=== PATIENT | female | born 2000 | race Caucasian/White ===

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

== ENCOUNTER 2020-02-24 14:27 | Emergency (ER) | payer MEDICAID ==
[2020-02-24 14:34] VITALS: BP 101/65
[2020-02-24] MEDS ORDERED: ONDANSETRON ODT 4 MG TAB (6 TAB/ER DISP) PO PRN (14:44)
--- NOTE | 2020-02-24 14:59 | ER Document Report ---
ED GI/ - General Chief Complaint: Nausea Stated Complaint: MEDICATION REFILL 25 WKS Time Seen by Provider: 02/24/20 14:44 Primary Care Provider: [facility] [Provider Group] - Follow up as needed Mode of Arrival: Ambulatory Information source: Patient Notes: 19-year-old presents to ED for nausea and vomiting during . She states she has an appointment with the [facility] on the and she needs some Zofran to last until she can go to the [facility]. She states she had a prescription for the Zofran and has run out and there are no refills. We will give patient a sixpack of Zofran which should last her until her follow-up appointment. She states she usually just needs to take it once a day and if she does not take it she is not able to keep any food or fluids down. Constitutional: Negative for fever. HENT: Negative for sore throat. Eyes: Negative for visual changes. Cardiovascular: Negative for chest pain. Respiratory: Negative for shortness of breath. Gastrointestinal: Complains of nausea and vomiting during Genitourinary: Negative for dysuria. Musculoskeletal: Negative for back pain. Skin: Negative for rash. Neurological: Negative for headaches, weakness or numbness. 10 point ROS negative except as marked above and in HPI. VITAL SIGNS: Within normal limits. GENERAL: No acute distress, non-toxic appearance. HEAD: Normal with no signs of head trauma. EYES: PERRLA, EOMI, conjunctiva normal, no discharge. EARS: Hearing grossly intact. NOSE: Normal. THROAT: Oropharynx is normal. NECK: Normal range of motion, no tenderness, supple, no lymphadenopathy, No adenopathy, no JVD. CHEST: Clear breath sounds bilaterally. No wheezes, rales, or rhonchi. CARDIAC: Regular rate and rhythm. S1 and S2, without murmurs, gallops, or rubs. VASCULAR: No Edema. Peripheral pulses normal and equal in all extremities. ABDOMEN: abdomen. She states [facility] but she needs Zofran before then. GASTROINTESTINAL: Bowel sounds normal GENITOURINARY: Normal, No tenderness LYMPATHTIC: No lymphadenopathy noted. MUSCULOSKELETAL: Good range of motion of all major joints. Extremities without clubbing, cyanosis or edema. NEUROLOGICAL: Alert and oriented x 3. No focal sensory or strength deficits. Speech normal. Follows commands appropriately. PSYCHIATRIC: Normal Affect, judgement and mood. SKIN: Normal appearance with no rashes or lesions. TRAVEL OUTSIDE OF THE [place] IN LAST 30 DAYS: No - HPI Patient complains to provider of: , Vomiting Onset: Other - Throughout her Timing/Duration: Intermittent - States she has nausea and vomiting for but if she takes the Zofran once a day Quality of pain: No pain Severity in ED: None Pain Level: Denies Menstrual period history: heart tones (bpm): 144 OB ultrasound done: No vitamins taken: No Associated symptoms: Nausea, Vomiting Exacerbated by: Denies Relieved by: Denies Similar symptoms previously: Yes Recently seen / treated by doctor: Yes - Related Data Allergies/Adverse Reactions: No Known Drug Allergies Allergy (Verified 12/24/19 00:05) Past Medical History - General Information source: Patient - Social History Smoking Status: Never Smoker Frequency of alcohol use: None Drug Abuse: None Lives with: Family Family History: Reviewed & Not Pertinent Patient has suicidal ideation: No Patient has homicidal ideation: No - Past Medical History Cardiac Medical History: Reports: None Pulmonary Medical History: Reports: None EENT Medical History: Reports: None Neurological Medical History: Reports: None Endocrine Medical History: Reports: None Renal/ Medical History: Reports: None Malignancy Medical History: Reports: None GI Medical History: Reports: None Musculoskeletal Medical History: Reports None Skin Medical History: Reports None Psychiatric Medical History: Reports: Hx Depression - Manic d/o, Hx Schizophrenia - boarderline personality Traumatic Medical History: Reports: None Infectious Medical History: Reports: None - Immunizations Immunizations up to date: Yes Hx Diphtheria, Pertussis, Tetanus Vaccination: Yes Physical Exam - Vital signs Vitals: Temp Pulse Resp BP Pulse Ox 98.6 F 95 H 18 101/65 98 02/24/20 14:33 02/24/20 14:33 02/24/20 14:33 02/24/20 14:33 02/24/20 14:33 Course - Vital Signs Vital signs: Temp Pulse Resp BP Pulse Ox 98.6 F 95 H 18 101/65 98 02/24/20 14:33 02/24/20 14:33 02/24/20 14:33 02/24/20 14:33 02/24/20 14:33 - Laboratory Results Critical Laboratory Results Reviewed: No Critical Results - Radiology Results Critical Radiology Results Reviewed: No Critical Results Discharge - Discharge Clinical Impression: Nausea and vomiting during Condition: Stable Disposition: HOME, SELF-CARE Additional Instructions: You were seen today for refill on your Zofran for your . You stated you have a appointment with your [facility] at [facility] on February 25. We have given you a Zofran dispense pack for your nausea and vomiting during . Antinausea Medication You have been given a medication to suppress nausea and vomiting. This type of medication can be given as a shot, pill, or suppository. It will usually last for many hours. Pills and shots usually last six to eight hours, suppositories last about 12 hours. For the typical illness, only one or two doses of the medication may be necessary. Mild lightheadedness may occur. This type of medicine can cause drowsiness. Do not drive or operate dangerous machinery while under its influence. Do not mix with alcohol. See your doctor at once if you have muscle spasms or tightness, or uncontrollable motions (particularly of the neck, mouth, or jaw). Persistent vomiting or severe lightheadedness should also be evaluated by the physician. FOLLOW-UP CARE: If you have been referred to a physician for follow-up care, call the physicians office for an appointment as you were instructed or within the next two days. If you experience worsening or a significant change in your symptoms, notify the physician immediately or return to the Emergency Department at any time for re-evaluation. Referrals: [facility] [Provider Group] - Follow up as needed
== END 2020-02-24 15:02 | disposition home or self-care (01) ==
LOC: ER 14:27
DX: O21.8 Other vomiting complicating pregnancy (principal); Z3A.25 25 weeks gestation of pregnancy
CPT/HCPCS: 99283